=== PATIENT | female | born 1965 | race Caucasian/White ===

== ENCOUNTER 2018-06-04 12:15 | Inpatient (IN) | payer OTHER ==
[~2018-06-04] VITALS: Ht 162.6 cm; Wt 71.7 kg
[2018-06-04 12:21] VITALS: BP_SYST 123
[2018-06-04] MEDS ORDERED: NACL 0.9% 1,000 ML IV ONE (12:44)
[2018-06-04] MEDS ORDERED: KETOROLAC TROMETHAMINE 30 MG VIAL IVP ONE (12:45)
[2018-06-04] MEDS ORDERED: ONDANSETRON HCL 4 MG/2 ML VIAL IVP ONE (12:45)
[2018-06-04 13:36] LABS: BILIRUBIN,URINE NEGATIVE (NEGATIVE); BLOOD, URINE NEGATIVE (NEGATIVE); CLARITY/URINE HAZY (CLEAR); COLOR,URINE YELLOW (YELLOW); GLUCOSE,URINE NEGATIVE (NEGATIVE); KETONES,URINE 1+ (NEGATIVE); LEUKOCYTE ESTERASE ,URINE NEGATIVE (NEGATIVE); NITRITE, URINE NEGATIVE (NEGATIVE); PH,URINE 7.5 (5.0-8.0); PROTEIN URINE TRACE (NEGATIVE); UROBILINOGEN,URINE 0.2 (0.2-1.0)
[2018-06-04 13:42] LABS: CALCIUM 9.4 mg/dL (8.4-11.0); CREATININE 0.79 mg/dL (0.55-1.30)
[2018-06-04 13:43] LABS: PROTHROMBIN TIME 9.9 SECS (9.5-12.5)
[2018-06-04 13:46] LABS: ALBUMIN 3.9 g/dL (3.4-4.8); TOTAL BILIRUBIN 0.4 mg/dL (0.0-1.0)
[2018-06-04 13:51] LABS: BARBITURATE, URINE NEGATIVE (NEG <=200); BENZODIAZEPINE, URINE NEGATIVE (NEG <=150); CANNABINOID, URINE POSITIVE (NEG <=50); COCAINE, URINE NEGATIVE (NEG <=150); METHAMPHETAMINES SCREEN,URINE NEGATIVE (NEG <=500); OPIATE, URINE NEGATIVE (NEG <=100); PHENCYCLIDINE SCREEN,URINE NEGATIVE (NEG <=25); UR TRICYCLIC ANTIDEPRESSANTS NEGATIVE (NEG <=300); URINE AMPHETAMINE NEGATIVE (NEG <=500); URINE METHADONE NEGATIVE (NEG <=200); URINE OXYCODONE SCREEN NEGATIVE (NEG <=100); URINE PROPOXYPHENE SCREEN NEGATIVE (NEG <=300)
[2018-06-04 13:55] LABS: BACTERIA,URINE RARE /HPF (None Seen); URINE AMORPHOUS PHOSPHATES 4+ /HPF (None Seen); WBC,URINE 0-3 /HPF (0-3)
[2018-06-04] MEDS ORDERED: POTASSIUM CHLORIDE 20 MEQ TAB.PRT.SR PO ONE (14:00)
[2018-06-04] MEDS ORDERED: MORPHINE 4 MG/ML INJ. SYRINGE IVP ONE ×3 (14:15→19:00)
[2018-06-04] MEDS ORDERED: SODIUM CHLORIDE 500 MG TABLET PO ONE (16:30)
[2018-06-04 16:42] LABS: HEMATOCRIT 39.4 % (36-48); HEMOGLOBIN 13.6 g/dL (12.0-16.0); MEAN CORPUSCULAR HEMOGLOBIN 32 pg (27-31); MEAN CORPUSCULAR VOLUME 92 fL (79.0-98.0); RED BLOOD CELL COUNT(AUTO) 4.27 MIL/uL (4.2-6.2); WHITE BLOOD COUNT (AUTO) 10.7 K/uL (4.8-10.8)
[2018-06-04 16:43] LABS: BASOPHILS % (AUTO) 0.4 % (0.0-2.0); EOSINOPHILS % (AUTO) 0.1 % (0.0-4.0); LYMPHOCYTES # (AUTO) 1.5 K/uL (1.0-5.5); LYMPHOCYTES % (AUTO) 14.2 % (20.5-51.5); MEAN CORPUSCULAR HGB CONC 35 % (32-36); MONOCYTES % (AUTO) 2.5 % (1.7-9.3); NEUTROPHILS # (AUTO) 8.9 K/uL (1.8-7.7); NEUTROPHILS % (AUTO) 82.8 % (40.0-70.0); PLATELET COUNT (AUTO) 312 K/uL (130-430)
[2018-06-04 16:44] LABS: MONOCYTES # (AUTO) 0.3 K/uL (0.0-1.0)
[2018-06-04] MEDS ORDERED: metroNIDAZOLE 500 mg/NS 100 ML IV ONE ×2 (17:45→22:53)
[2018-06-04 17:52] LABS: CALCIUM 8.6 mg/dL (8.4-11.0); CREATININE 0.75 mg/dL (0.55-1.30); POTASSIUM 4.3 mmol/L (3.5-5.1)
[2018-06-04] MEDS ORDERED: D5NS 1,000 ML IV SCH (17:54)
[2018-06-04 18:13] VITALS: BP_SYST 118
[2018-06-04] MEDS ORDERED: LISI40TA4 PO (18:26)
[2018-06-04 19:25] VITALS: BP_SYST 135
[2018-06-04] MEDS ORDERED: ACETAMINOPHEN 325 MG TABLET PO PRN (19:45)
[2018-06-04] MEDS ORDERED: MORPHINE 4 MG/ML INJ. SYRINGE IVP PRN (19:45)
[2018-06-04] MEDS: D5/0.45 NS 1,000 ML IV SCH (21:00)
[2018-06-04] MEDS: ONDANSETRON HCL 4 MG/2 ML VIAL IVP PRN (21:06)
[2018-06-04] MEDS: HYDROcodone/ACETAMIN 5-325 MG TAB (NORCO/ VICODIN) PO PRN (21:07)
[2018-06-04] MEDS: CIPROFLOXACIN LACT 400 MG/D5W 200 ML IV SCH (22:50)
[2018-06-04] MEDS ORDERED: CIPROFLOXACIN LACT 400 MG/D5W 200 ML IV ONE (22:53)
[2018-06-05 01:25] VITALS: BP_SYST 110
[2018-06-05] MEDS: metroNIDAZOLE 500 mg/NS 100 ML IV SCH ×3 (04:26→20:39)
[2018-06-05] MEDS: D5/0.45 NS 1,000 ML IV SCH ×2 (04:31→17:11)
[2018-06-05] MEDS: HYDROcodone/ACETAMIN 5-325 MG TAB (NORCO/ VICODIN) PO PRN (06:07)
[2018-06-05 06:50] LABS: ALBUMIN 2.8 g/dL (3.4-4.8); CALCIUM 8.3 mg/dL (8.4-11.0); CREATININE 0.89 mg/dL (0.55-1.30); PHOSPHORUS 2.4 mg/dL (2.7-4.5); POTASSIUM 3.8 mmol/L (3.5-5.1); TOTAL BILIRUBIN 0.6 mg/dL (0.0-1.0)
[2018-06-05] MEDS: LORazepam 2 MG/ML VIAL IVP PRN ×2 (07:37→11:39)
[2018-06-05 08:00] VITALS: BP_SYST 108
[2018-06-05 08:04] LABS: HEMATOCRIT 34.1 % (36-48); HEMOGLOBIN 11.5 g/dL (12.0-16.0); MEAN CORPUSCULAR VOLUME 93 fL (79.0-98.0); RED BLOOD CELL COUNT(AUTO) 3.66 MIL/uL (4.2-6.2); WHITE BLOOD COUNT (AUTO) 11.4 K/uL (4.8-10.8)
[2018-06-05 08:05] LABS: BASOPHILS % (AUTO) 0.2 % (0.0-2.0); LYMPHOCYTES # (AUTO) 0.8 K/uL (1.0-5.5); LYMPHOCYTES % (AUTO) 7.2 % (20.5-51.5); MEAN CORPUSCULAR HEMOGLOBIN 31 pg (27-31); MEAN CORPUSCULAR HGB CONC 34 % (32-36); MONOCYTES # (AUTO) 0.3 K/uL (0.0-1.0); MONOCYTES % (AUTO) 2.9 % (1.7-9.3); NEUTROPHILS # (AUTO) 10.3 K/uL (1.8-7.7); NEUTROPHILS % (AUTO) 89.7 % (40.0-70.0); PLATELET COUNT (AUTO) 235 K/uL (130-430)
[2018-06-05 08:13] LABS: C-REACTIVE PROTEIN QUANT 15.9 mg/dL (0-0.5)
[2018-06-05 08:47] LABS: ERYTHROCYTE SEDIMENTATION RATE 16 MM/HR (0-20)
[2018-06-05] MEDS: LISINOPRIL 20 MG TABLET PO SCH (09:00)
[2018-06-05] MEDS: CIPROFLOXACIN LACT 400 MG/D5W 200 ML IV SCH ×2 (09:17→22:21)
[2018-06-05 12:33] VITALS: BP_SYST 104
[2018-06-05] MEDS: HYDROcodone/ACETAMIN 10-325 MG TAB PO PRN (15:22)
[2018-06-05] MEDS ORDERED: BACLOFEN 10 MG TABLET PO ONE (15:45)
[2018-06-05 16:34] VITALS: BP_SYST 116
[2018-06-05] MEDS ORDERED: MORPHINE 4 MG/ML INJ. SYRINGE IVP PRN (17:00)
[2018-06-05 20:34] VITALS: BP_SYST 132
[2018-06-05] MEDS ORDERED: BACLOFEN 10 MG TABLET PO SCH (21:00)
[2018-06-05] MEDS: HYDROmorphone 1 MG INJ. 1 MG/ML AMPUL IVP PRN (22:18)
[2018-06-06] MEDS: HYDROcodone/ACETAMIN 10-325 MG TAB PO PRN ×2 (01:40→08:41)
[2018-06-06] MEDS: D5/0.45 NS 1,000 ML IV SCH ×2 (01:40→13:58)
[2018-06-06] MEDS: metroNIDAZOLE 500 mg/NS 100 ML IV SCH (03:50)
[2018-06-06] MEDS: LORazepam 2 MG/ML VIAL IVP PRN ×3 (03:50→20:36)
[2018-06-06] MEDS ORDERED: PIPERACILLIN/TAZOBACTAM 4.5 GM/VIAL (ZOSYN) IV ONE (06:30)
[2018-06-06] MEDS: PIPERACILLIN/TAZO 4.5GM/DEX-IS 100 ML IV SCH ×3 (06:34→21:24)
[2018-06-06 06:52] LABS: CALCIUM 8.8 mg/dL (8.4-11.0); CREATININE 0.76 mg/dL (0.55-1.30); POTASSIUM 3.8 mmol/L (3.5-5.1)
[2018-06-06 07:44] VITALS: BP_SYST 115
[2018-06-06 07:54] LABS: C-REACTIVE PROTEIN QUANT 68.5 mg/dL (0-0.5)
[2018-06-06 09:03] LABS: EOSINOPHILS % (AUTO) 0.1 % (0.0-4.0); HEMATOCRIT 36.3 % (36-48); HEMOGLOBIN 12.3 g/dL (12.0-16.0); LYMPHOCYTES % (AUTO) 9.4 % (20.5-51.5); MEAN CORPUSCULAR HEMOGLOBIN 32 pg (27-31); MEAN CORPUSCULAR HGB CONC 34 % (32-36); MEAN CORPUSCULAR VOLUME 94 fL (79.0-98.0); MONOCYTES % (AUTO) 2.8 % (1.7-9.3); PLATELET COUNT (AUTO) 217 K/uL (130-430); RED BLOOD CELL COUNT(AUTO) 3.89 MIL/uL (4.2-6.2); RED CELL DISTRIBUTION WIDTH 13.1 % (9.0-15.0); WHITE BLOOD COUNT (AUTO) 11.5 K/uL (4.8-10.8)
[2018-06-06 09:04] LABS: BASOPHILS % (AUTO) 0.4 % (0.0-2.0); LYMPHOCYTES # (AUTO) 1.1 K/uL (1.0-5.5); MONOCYTES # (AUTO) 0.3 K/uL (0.0-1.0); NEUTROPHILS # (AUTO) 10.1 K/uL (1.8-7.7)
[2018-06-06 09:09] VITALS: BP_SYST 121
[2018-06-06] MEDS: LISINOPRIL 20 MG TABLET PO SCH (09:17)
[2018-06-06 11:26] VITALS: BP_SYST 115
[2018-06-06 11:34] LABS: ERYTHROCYTE SEDIMENTATION RATE 44 MM/HR (0-20)
[2018-06-06 13:55] LABS: NEUTROPHILS % (AUTO) 87.3 % (40.0-70.0)
[2018-06-06 16:27] VITALS: BP_SYST 117; BP_SYST 89
[2018-06-06 16:32] VITALS: BP_SYST 111
[2018-06-06] MEDS: HYDROmorphone 1 MG INJ. 1 MG/ML AMPUL IVP PRN (16:34)
[2018-06-06] MEDS: ONDANSETRON HCL 4 MG/2 ML VIAL IVP PRN ×2 (17:16→21:24)
[2018-06-06] MEDS ORDERED: GASTROGRAFIN 120 ML ONE (17:21)
[2018-06-06 20:00] VITALS: BP_SYST 119
[2018-06-07 00:34] VITALS: BP_SYST 119
[2018-06-07] MEDS: D5/0.45 NS 1,000 ML IV SCH ×3 (02:19→17:50)
[2018-06-07] MEDS: ONDANSETRON HCL 4 MG/2 ML VIAL IVP PRN ×3 (02:19→19:50)
[2018-06-07] MEDS: MORPHINE 4 MG/ML INJ. SYRINGE IVP PRN ×2 (02:31→06:09)
[2018-06-07] MEDS: PIPERACILLIN/TAZO 4.5GM/DEX-IS 100 ML IV SCH ×3 (06:00→22:12)
[2018-06-07] MEDS: LORazepam 2 MG/ML VIAL IVP PRN ×2 (06:00→19:49)
[2018-06-07 06:52] LABS: ALBUMIN 2.2 g/dL (3.4-4.8); CALCIUM 9.3 mg/dL (8.4-11.0); CREATININE 0.6 mg/dL (0.55-1.30); POTASSIUM 3.1 mmol/L (3.5-5.1); TOTAL BILIRUBIN 0.3 mg/dL (0.0-1.0)
[2018-06-07 07:13] LABS: HEMATOCRIT 34.2 % (36-48); HEMOGLOBIN 11.6 g/dL (12.0-16.0); MEAN CORPUSCULAR HEMOGLOBIN 31 pg (27-31); MEAN CORPUSCULAR HGB CONC 34 % (32-36); MEAN CORPUSCULAR VOLUME 92 fL (79.0-98.0); PLATELET COUNT (AUTO) 233 K/uL (130-430); RED BLOOD CELL COUNT(AUTO) 3.72 MIL/uL (4.2-6.2); RED CELL DISTRIBUTION WIDTH 13.1 % (9.0-15.0); WHITE BLOOD COUNT (AUTO) 13.5 K/uL (4.8-10.8)
[2018-06-07 07:14] LABS: BASOPHILS % (AUTO) 0.1 % (0.0-2.0); LYMPHOCYTES # (AUTO) 0.6 K/uL (1.0-5.5); LYMPHOCYTES % (AUTO) 4.7 % (20.5-51.5); MONOCYTES # (AUTO) 0.5 K/uL (0.0-1.0); MONOCYTES % (AUTO) 3.9 % (1.7-9.3); NEUTROPHILS # (AUTO) 12.3 K/uL (1.8-7.7); NEUTROPHILS % (AUTO) 91.3 % (40.0-70.0)
[2018-06-07] MEDS: LISINOPRIL 20 MG TABLET PO SCH (08:21)
[2018-06-07 08:22] VITALS: BP_SYST 115
[2018-06-07] MEDS ORDERED: POLYETHYLENE GLYCOL 3350, 17 GM/ POWD.PACK PO ONE (09:30)
[2018-06-07 09:55] LABS: ERYTHROCYTE SEDIMENTATION RATE 94 MM/HR (0-20)
[2018-06-07 12:03] VITALS: BP_SYST 101
[2018-06-07] MEDS: HYDROmorphone 1 MG INJ. 1 MG/ML AMPUL IVP PRN ×2 (12:47→19:49)
[2018-06-07] MEDS ORDERED: POTASSIUM CHLORIDE 20 MEQ TAB.PRT.SR PO ONE (13:00)
[2018-06-07 16:48] VITALS: BP_SYST 141
[2018-06-07 20:00] VITALS: BP_SYST 134
[2018-06-08 00:38] VITALS: BP_SYST 117
[2018-06-08] MEDS: ONDANSETRON HCL 4 MG/2 ML VIAL IVP PRN ×3 (00:56→19:53)
[2018-06-08] MEDS: LORazepam 2 MG/ML VIAL IVP PRN ×2 (00:56→19:53)
[2018-06-08] MEDS: HYDROmorphone 1 MG INJ. 1 MG/ML AMPUL IVP PRN ×4 (00:57→17:03)
[2018-06-08] MEDS: D5/0.45 NS 1,000 ML IV SCH ×3 (04:54→17:57)
[2018-06-08] MEDS: PIPERACILLIN/TAZO 4.5GM/DEX-IS 100 ML IV SCH ×2 (04:56→14:50)
[2018-06-08 05:46] LABS: CALCIUM 8.7 mg/dL (8.4-11.0); CREATININE 0.66 mg/dL (0.55-1.30)
[2018-06-08 07:01] LABS: C-REACTIVE PROTEIN QUANT 38.5 mg/dL (0-0.5)
[2018-06-08 07:47] LABS: HEMATOCRIT 37.8 % (36-48); HEMOGLOBIN 12.6 g/dL (12.0-16.0); MEAN CORPUSCULAR HEMOGLOBIN 31 pg (27-31); MEAN CORPUSCULAR HGB CONC 33 % (32-36); MEAN CORPUSCULAR VOLUME 93 fL (79.0-98.0); RED BLOOD CELL COUNT(AUTO) 4.08 MIL/uL (4.2-6.2); RED CELL DISTRIBUTION WIDTH 13.4 % (9.0-15.0)
[2018-06-08 07:48] LABS: PLATELET COUNT (AUTO) 174 K/uL (130-430)
[2018-06-08] MEDS: LISINOPRIL 20 MG TABLET PO SCH (08:35)
[2018-06-08 08:38] VITALS: BP_SYST 128
[2018-06-08] MEDS ORDERED: POLYETHYLENE GLYCOL 3350, 17 GM/ POWD.PACK PO SCH (09:00)
[2018-06-08 09:06] LABS: ERYTHROCYTE SEDIMENTATION RATE 35 MM/HR (0-20)
[2018-06-08 10:37] LABS: BAND % (MANUAL) 12 % (0-6); BASOPHILS % (MANUAL) 0 % (0-2); EOSINOPHILS % (MANUAL) 0 % (0-7); LYMPHOCYTES % (MANUAL) 16 % (20-46); MONOCYTES % (MANUAL) 8 % (0-11)
[2018-06-08] MEDS: METOCLOPRAMIDE HCL 10 MG/2 ML VIAL IVP SCH ×2 (12:12→17:57)
[2018-06-08 12:13] VITALS: BP_SYST 106
[2018-06-08] MEDS ORDERED: PIPE4.5F2 IV (13:55)
[2018-06-08] MEDS ORDERED: REGI10 IVP (13:55)
[2018-06-08 16:02] VITALS: BP_SYST 113
[2018-06-08] MEDS: KCL 20 mEq in 100 mL (PREMIX) 100 ML IV SCH ×3 (16:45→18:56)
[2018-06-08] MEDS: MORPHINE 4 MG/ML INJ. SYRINGE IVP PRN (19:52)
[2018-06-08 20:00] VITALS: BP_SYST 143
[2018-06-08 20:07] VITALS: BP_SYST 143
== END 2018-06-08 22:17 | disposition short-term general hospital (02) | DRG 872 ==
LOC: SED 12:15 → SMU 17:54
PROVIDERS: ADMIT Preventive Medicine Preventive Medicine/Occupational Environmental Medicine; ATTEND Preventive Medicine Preventive Medicine/Occupational Environmental Medicine
DX: A41.50 Gram-negative sepsis, unspecified (principal); E87.1 Hypo-osmolality and hyponatremia; N39.0 Urinary tract infection, site not specified; R18.8 Other ascites; K57.32 Diverticulitis of large intestine without perforation or abscess without bleeding; E87.6 Hypokalemia; K52.9 Noninfective gastroenteritis and colitis, unspecified; D64.9 Anemia, unspecified; E88.09 Other disorders of plasma-protein metabolism, not elsewhere classified; R73.9 Hyperglycemia, unspecified; F12.10 Cannabis abuse, uncomplicated; I10 Essential (primary) hypertension; Z72.0 Tobacco use
CPT/HCPCS: 36415; 74018; 74250-TC; 80048; 80053; 80307; 81000-TC; 82150-TC; 83605; 83690-TC; 83735-TC; 84100-TC; 85007; 85025; 85027; 85610-TC; 85651-TC; 86140; 87040-TC; 96361; 96374; 96375; 96376; 97110-GP; 97116-GP; 97530-GP; 99285; J0744; J1170; J1885; J2060; J2270; J2405; J2543; J2765; J3480; J3490; J7042; Q9963